=== PATIENT | male | born 1990 ===

== ENCOUNTER 2018-09-18 02:08 | Emergency (ER) | payer SELFPAY ==
--- NOTE | 2018-09-18 03:14 | ED ---
Substance Abuse/Use - HPI Summary HPI Summary: LEVEL 5 CAVEAT: HPI LIMITED DUE TO PATIENT CONDITION, ETOH INTOXICATION A 27 y/o M brought in by ambulance presents to ED for ETOH intoxication onset [employer]. Per EMS: Patient was picked up at [facility], unresponsive. He did not vomit en route. Patient is somnolent, snoring, and not answering questions at bedside. - History Of Current Complaint Chief Complaint: EDSubstanceAbuse Stated Complaint: "ETOH" PER PT Hx Obtained From: EMS Ingestion History: Type/Name Of Drug - ETOH - Allergies/Home Medications Allergies/Adverse Reactions: Allergies Allergy/AdvReac Type Severity Reaction Status Date / Time Unable to Assess Allergy Verified 09/18/18 03:09 Home Medications: Home Medications Unobtainable 09/18/18 [History Confirmed 09/18/18] PMH/Surg Hx/FS Hx/Imm Hx Previously Healthy: Yes - L5 CAVEAT: PMHx LIMITED DUE TO PT CONDITION, ETOH INTOX Infectious Disease History: Unable to Obtain/Confirm Infectious Disease History: Denies: Traveled Outside the [place] in Last 30 Days - unknown - Family History Known Family History: Positive: Unknown - L5 CAVEAT: FHx LIMITED DUE TO PT CONDITION, ETOH INTOX - Social History Alcohol Use: unknown Substance Use Type: Reports: None Substance Use Comment - Amount & Last Used: denies Smoking Status (MU): Unknown if Ever Smoked Review of Systems - ROS Summary Review of Systems Summary: LEVEL 5 CAVEAT: ROS LIMITED DUE TO PATIENT CONDITION, ETOH INTOXICATION Positive: Other - pos: ETOH intoxication Negative: Vomiting All Other Systems Reviewed And Are Negative: No Physical Exam - Summary Physical Exam Summary: LEVEL 5 CAVEAT: PE LIMITED DUE TO PATIENT CONDITION, ETOH INTOXICATION Appearance: Appears intoxicated Skin: Warm, dry, no obvious rash Eyes: sclera anicteric, no conjunctival pallor, dysconjugate gaze ENT: mucous membranes moist Neck: deferred Respiratory: No signs of respiratory distress, snoring, maintaining his airway Cardiovascular: Appears well perfused, pulses are nml Abdomen: deferred Musculoskeletal: Moving all 4 extremities without obvious discomfort Triage Information Reviewed: Yes Vital Signs On Initial Exam: Initial Vitals Temp Pulse Resp BP Pulse Ox 97.7 F 79 16 87/54 96 09/18/18 02:08 09/18/18 02:08 09/18/18 02:08 09/18/18 02:08 09/18/18 02:08 Vital Signs Reviewed: Yes Completion Of Physical Exam Limited Due To: Level 5 Diagnostics - Vital Signs Vital Signs Temp Pulse Resp BP Pulse Ox 09/18/18 03:00 76 15 92 09/18/18 02:43 71 21 98/45 94 09/18/18 02:13 76 10 101/45 92 09/18/18 02:12 84 20 95 09/18/18 02:08 97.7 F 79 16 87/54 96 - Laboratory Lab Statement: Any lab studies that have been ordered have been reviewed, and results considered in the medical decision making process. Course/Dx - Course Course Of Treatment: Pt is a 27 y/o M brought in by ambulance for ETOH intoxication. Patient is somnolent and snoring at bedside, and maintaining his airways. He has a dysconjugate gaze. Will discharge patient home. - Diagnoses Provider Diagnoses: Alcohol intoxication Discharge - Sign-Out/Discharge Documenting (check all that apply): Patient Departure - D/C Patient Received Moderate/Deep Sedation with Procedure: No - Discharge Plan Condition: Good Disposition: HOME Patient Education Materials: Alcohol Intoxication (ED) Referrals: [facility] [Outside] - Billing Disposition and Condition Condition: GOOD Disposition: Home - Attestation Statements Document Initiated by Scribe: Yes Documenting Scribe: Dennise Ying Provider For Whom Tito is Documenting (Include Credential): Dr. Yann Yang MD Scribe Attestation: Dennise Padilla scribed for Dr. Yann Yang MD on 09/22/18 at 0114. Scribe Documentation Reviewed: Yes Provider Attestation: The documentation as recorded by the Dennise castellanos accurately reflects the service I personally performed and the decisions made by me, Dr. Yann Yang MD Status of Scribe Document: Viewed
[2018-09-18 06:39] VITALS: BP 119/75
== END 2018-09-18 06:37 | disposition home or self-care (01) ==
LOC: ED 02:08
DX: F10.129 Alcohol abuse with intoxication, unspecified (principal)
CPT/HCPCS: 99283